=== PATIENT | male | born 1955 ===

== ENCOUNTER 2023-09-29 15:42 | Outpatient (REF) | payer SELFPAY | END 2023-09-29 15:43 | disposition home or self-care (01) | LOC: NCHCN 15:42 | PROVIDERS: Referring Provider Nurse Practitioner Family; Visit Provider Nurse Practitioner Family | DX: S81.801A Unspecified open wound, right lower leg, initial encounter (principal); X58.XXXA Exposure to other specified factors, initial encounter | CPT/HCPCS: 87077; 87070; 87186; 87205 ==

== ENCOUNTER 2023-10-08 18:05 | Outpatient (REF) | payer SELFPAY ==
[2023-10-08 19:20] LABS: HCT 38.3 % (40.0-50.0); HGB 12.6 g/dL (13.5-17.5); MCH 33.1 pg (27.0-33.0); MCHC 32.9 % (32.0-36.0); MCV 101 fL (80-95); MPV 10.1 fL (8.0-11.0); Platelet Count 359 10^3/uL (130-400); RBC 3.81 10^6/uL (4.36-5.78); RDW 13.5 % (11.8-14.1); RDW-SD 49.7 fL
== END 2023-10-08 18:06 | disposition home or self-care (01) ==
LOC: NCHCN 18:05
PROVIDERS: Visit Provider Nurse Practitioner Family
DX: T81.49XD Infection following a procedure, other surgical site, subsequent encounter (principal); Z89.611 Acquired absence of right leg above knee
CPT/HCPCS: 85027; 87077; 87070; 87186; 87205

== ENCOUNTER 2023-10-13 15:36 | Outpatient (REF) | payer SELFPAY ==
[2023-10-13 19:06] LABS: BUN 44 mg/dL (7-18); CREATININE 1.6 mg/dL (0.70-1.30); Calcium 9.2 mg/dL (8.5-10.1); Chloride 105 mmol/L (98-107); Estimated GFR 46.93 (mL/min/1.73m2); Glucose 129 mg/dL (74-106); Potassium 4.2 mmol/L (3.5-5.1); Sodium 139 mmol/L (136-145)
== END 2023-10-13 15:37 | disposition home or self-care (01) ==
LOC: NCHCN 15:36
PROVIDERS: Visit Provider Nurse Practitioner Family
DX: N17.9 Acute kidney failure, unspecified (principal)
CPT/HCPCS: 80048

== ENCOUNTER 2023-11-24 12:39 | Outpatient (REF) | payer SELFPAY ==
[2023-11-24 19:05] LABS: Anion Gap 10.3 mmol/L (3-11); BUN 37 mg/dL (7-18); CO2 22.7 mmol/L (21.0-32.0); CREATININE 1.5 mg/dL (0.70-1.30); Calcium 9.7 mg/dL (8.5-10.1); Chloride 105 mmol/L (98-107); Estimated GFR 50.71 (mL/min/1.73m2); Glucose 114 mg/dL (74-106); Potassium 5.1 mmol/L (3.5-5.1); Sodium 138 mmol/L (136-145)
[2023-11-24 19:11] LABS: Hemoglobin A1C 6.1 % (<5.7)
== END 2023-11-24 12:40 | disposition home or self-care (01) ==
LOC: NCHCN 12:39
PROVIDERS: PCP Nurse Practitioner Family; Visit Provider Nurse Practitioner Family
DX: R73.03 Prediabetes (principal); N17.9 Acute kidney failure, unspecified
CPT/HCPCS: 80048; 83036